=== PATIENT | female | born 1960 ===

== ENCOUNTER 2023-05-14 23:58 | Emergency (ER) | payer OTHER, MEDICAID ==
--- NOTE | ~2023-05-14 | EKG ---
[facility] [address] [facility] [place], [place] [address] Draft EK completed, results pending confirmation PATIENT NAME: LEXIE,DEVORA Electrocardiogram DATE OF : PHYSICIAN: PRELIMINARY REPORT #: [id number] REPORT IS CONFIDENTIAL AND NOT TO BE RELEASED WITHOUT AUTHORIZATION
[2023-05-15 00:14] LABS: BASOPHILS 0.5 % (0-2); EOSINOPHILS 2.4 % (0-6); HEMATOCRIT 49.2 % (35.0-50.0); HEMOGLOBIN 15.5 g/dL (12.0-18.0); LYMPHOCYTES 29.6 % (24-44); MCH 30.2 (27-36); MCHC 31.6 g/dl (30-36); MCV 95.6 fl (81-99); NEUTROPHILS 60.5 % (39-80); PLATELET COUNT 272 K/uL (140-440); RBC 5.14 M/ul (4.3-5.7); RDW 14.8 (10.5-15.0)
[2023-05-15 00:31] LABS: ALBUMIN 3.4 g/dL (3.4-5.0); ALBUMIN/GLOBULIN RATIO 0.85 (1.1-2.4); ANION GAP 16.3 (7-21); BILIRUBIN, TOTAL 0.2 ng/dL (0.2-1.0); BUN/CREATININE RATIO 23.52 (6.0-28.6); CALCIUM 8.8 mg/dL (8.5-10.1); CREATININE, SERUM 0.85 mg/dL (0.55-1.02); POTASSIUM 3.3 mmol/L (3.5-5.1); PROTEIN, TOTAL 7.4 g/dL (6.4-8.2)
[2023-05-15 00:53] LABS: ABO A; ANTIBODY SCREEN NEGATIVE; RH POSITIVE
[2023-05-15 01:15] LABS: AMPHETAMINES, UR NEGATIVE (NEGATIVE); BARBITURATES, UR NEGATIVE (NEGATIVE); MARIJUANA (THC), UR NEGATIVE (NEGATIVE)
[2023-05-15 01:16] LABS: BENZODIAZEPINES, UR NEGATIVE (NEGATIVE); BUPRENORPHINE,UR NEGATIVE (NEGATIVE); COCAINE, UR NEGATIVE (NEGATIVE); MDMA, UR NEGATIVE (NEGATIVE); METHADONE, UR NEGATIVE (NEGATIVE); METHAMPHETAMINE, UR NEGATIVE (NEGATIVE); OPIATES, UR NEGATIVE (NEGATIVE); OXYCODONE, UR NEGATIVE (NEGATIVE); PHENCYCLIDINE, UR NEGATIVE (NEGATIVE); TRICYCLIC ANTIDEPRESSANT, UR NEGATIVE (NEGATIVE)
[2023-05-15 08:42] VITALS: BP 141/86
== END 2023-05-15 08:20 | disposition short-term general hospital (02) ==
LOC: ED 23:58 → EDBD 05-15 → ED 05-15 08:20
PROVIDERS: Internal Medicine
DX: S52.612B Displaced fracture of left ulna styloid process, initial encounter for open fracture type I or II (principal); S52.502B Unspecified fracture of the lower end of left radius, initial encounter for open fracture type I or II; S53.195A Other dislocation of left ulnohumeral joint, initial encounter; V68.4XXA Person boarding or alighting a heavy transport vehicle injured in noncollision transport accident, initial encounter; E66.9 Obesity, unspecified; Z20.822 Contact with and (suspected) exposure to COVID-19; Z23 Encounter for immunization
CPT/HCPCS: 36415; 71045; 73030; 73070; 73080; 73110; 80053; 82803; 85025; 86850; 86900; 86901; 90715; 93005; 93010; G0480; J0690; J0696; J1170; J2704; J3010; J7121; U0002